=== PATIENT | female | born 1955 | race African-American/Black ===

== ENCOUNTER 2022-12-02 10:42 | Outpatient (CLI) | payer MEDICARE, MEDICAID, SELFPAY ==
--- NOTE | ~2022-12-02 | XR_ITS ---
EXAMINATION: XR chest 2V DATE: 12/02/2022 11:54 INDICATION: Myocardial infarction. Hypertension. TECHNIQUE: Frontal and lateral views of the chest were obtained. COMPARISON: None. FINDINGS: There are reticular opacities in peripheral right upper lung zone. No pleural effusion or p neumothorax. Cardiomegaly is noted. IMPRESSION: 1. Reticular opacities in peripheral right upper lung zone, consistent with mild pulmonary edema vers us chronic lung disease. 2. Cardiomegaly. Reviewed, dictated and finalized at location A. IMPRESSION: 1. Reticular opacities in peripheral right upper lung zone, consistent with mil d pulmonary edema versus chronic lung disease. 2. Cardiomegaly.
--- NOTE | ~2022-12-02 | US_ITS ---
EXAMINATION: US retroperitoneal comp DATE: 12/02/2022 11:57 INDICATION: Hypertension. TECHNIQUE: Multiple ultrasound grayscale images of the kidneys were obtained. COMPARISON: None. FINDINGS: The right kidney measures 10.5 x 4.7 x 4.6 cm. The left kidney measures 10.6 x 5.1 x 6.1 cm. The kidn eys demonstrate normal echogenicity. 9 mm echogenic and shadowing stone in an inferior calyx of the l eft kidney. There is no hydronephrosis in either kidney. The bladder is normal with bilateral uretera l jets visualized on color Doppler. IMPRESSION: 1. 9 mm nonobstructing left renal stone. Otherwise normal kidneys with no hydronephrosis. Reviewed, dictated and finalized at location B. IMPRESSION: 1. 9 mm nonobstructing left renal stone. Otherwise normal kidneys with no hydr onephrosis.
== END 2022-12-02 10:43 | disposition home or self-care (01) ==
PROVIDERS: PCP Internal Medicine; Visit Provider Internal Medicine Nephrology
DX: I21.4 Non-ST elevation (NSTEMI) myocardial infarction (principal); I51.7 Cardiomegaly; R91.8 Other nonspecific abnormal finding of lung field; I10 Essential (primary) hypertension; E78.00 Pure hypercholesterolemia, unspecified; N20.0 Calculus of kidney
CPT/HCPCS: 71046; 76770